=== PATIENT | male | born 1965 | race Two or more races ===

== ENCOUNTER 2022-01-19 10:01 | Emergency (ER) | payer MEDICAID, OTHER ==
[~2022-01-19] VITALS: Ht 188 cm; Wt 83.5 kg
[~2022-01-19 10:01] MED LIST: CEPH500C PO; IBUP200T76 PO; METH4TAB7 PO
[2022-01-19 10:09] VITALS: BP 158/85
[2022-01-19] MEDS ORDERED: IBUP800T27 PO (13:14)
== END 2022-01-19 13:55 | disposition home or self-care (01) ==
LOC: ER 10:01
DX: M25.561 Pain in right knee (principal); F17.210 Nicotine dependence, cigarettes, uncomplicated; F12.10 Cannabis abuse, uncomplicated
CPT/HCPCS: 73562

== ENCOUNTER 2025-02-13 08:22 | Day surgery (SDC) | payer OTHER ==
[~2025-02-13] VITALS: Ht 188 cm; Wt 74.8 kg
[~2025-02-13 08:22] MED LIST changes: +ACE650RS PR; -CEPH500C PO; -IBUP200T76 PO; -METH4TAB7 PO; +OME20GT OR; +TAMS-35 PO
[2025-02-13] MEDS ORDERED: LIDOCAINE VISCOUS 2% 15ML UD ONE (09:29)
--- NOTE | 2025-02-13 09:41 | DVHHP2 ---
GI H&P Pre-Op Assessment Date: 02/13/25 Chief complaint: Heartburn HPI: per clinic note Past medical history: per clinic note Past surgical history: per clinic note Family history: per clinic note Physical exam: General: NAD, AAOX3 HEENT: PERRL, no scleral icterus, normal hearing, gums without lesions or bleeding, oropharynx clear without erythema or exudate. Neck: Supple without enlargement of the thyroid, or lymphadenopathy. Chest: Normal size and shape, no tenderness, lung liriano clear to auscultation and percussion, nonlabored breathing. Heart: RRR, no murmur Abdomen: non-distended, no tenderness to palpation, +BS, no hepatosplenomegaly Extremities: no edema Neurological: CN II-XII intact, sensation intact in all extremities, 5+ strength in all extremities Skin: No rashes, No jaundice Assessment: -heartburn Plan: - EGD - Risks (bleeding, infection, perforation, reaction to sedation medications and cardiopulmonary arrest) and benefit of the procedure were explained to patient. Patient agrees to undergo the procedure. SHERRY MADRID MD Feb 13, 2025 09:41
[2025-02-13] MEDS ORDERED: fentaNYL CITRATE 100 MCG/2 ML VL ONE (09:50)
[2025-02-13] MEDS ORDERED: MIDAZOLAM HCL 2MG/2ML 2ml VIAL (1mg/ml) ONE (09:50)
--- NOTE | 2025-02-13 09:55 | DVHOP2 ---
Operative Report DATE OF OPERATION: 02/13/25 PROCEDURE: Upper Endoscopy. PREOPERATIVE INDICATION: The patient is a 59 -year-old male undergoing endoscopy for heartburn. POSTOPERATIVE DIAGNOSES: 1. Antral gastritis PROCEDURE PERFORMED BY: Rico Carrillo SCOPE: Olympus videoendoscope. ASA CLASS: 3 PREOPERATIVE MEDICATIONS: MAC with Dr Lares PROCEDURE IN DETAIL: After obtaining an informed consent, the patient was placed on left lateral decubitus position. The patient was then sedated with the above medications. A bite block was placed between his teeth. The endoscope was then passed through the oropharynx, into the esophagus, and through the stomach and pylorus up to the second and third part of the duodenum. The duodenum was normal in appearance. There was antral gastritis. Antral biopsies were obtained. The GE junction was normal appearance at 41 cm. The esophagus was normal in appearance. The endoscope was then withdrawn. The patient tolerated the procedure well without difficulty. COMPLICATIONS : None SPECIMENS: Antral biopsies DISPOSITION: D/C to home PLAN: 1. Await for biopsy result 2. Continue omeprazole. RICO CARRILLO MD Feb 13, 2025 09:55
--- NOTE | 2025-02-13 09:56 | DVHDS2 ---
Physician Discharge Progress N Final Diagnosis: Antral gastritis Operations or Procedures: Operations or Procedures EGD with cold biopsy Condition on Discharge: Good Disposition: Home Discharge Instructions: Diet: Regular Activity: No Restrictions, As Tolerated Medications: Resume previous home medications Follow Up Care: Discharge Statement: "Patient was advised to return to the ER or call 911 if any headaches, dizziness, shortness of breath, chest pain, abdominal pain, bleeding, fevers, or worsening of medical condition. Patient was counseled about treatment plan, medications, possible side effects, patientverbalized understanding. All questions were answered to the best of my ability. This discharge took greater then 30 minutes in planning, reviewing documentation, counseling the patient, and discussing with other team members." SHERRY MADRID MD Feb 13, 2025 09:56
[2025-02-13] MEDS ORDERED: PROPOFOL 10 MG/ML 20 ML IV ONE (09:57)
[2025-02-13] MEDS ORDERED: DexAMETHasone SOD PHOS 10MG/1ML VIAL INJ ONE (09:57)
[2025-02-13 10:00] VITALS: PULSE 82; RESP 19; TEMP 97.9; O2SAT 100
[2025-02-13 10:35] VITALS: BP 148/76; PULSE 60; RESP 14; O2SAT 96
== END 2025-02-13 10:45 | disposition home or self-care (01) ==
LOC: GI 08:22
PROVIDERS: ATTEND Internal Medicine Gastroenterology
DX: R12 Heartburn (principal); K29.50 Unspecified chronic gastritis without bleeding; K31.A0 Gastric intestinal metaplasia, unspecified; N40.0 Benign prostatic hyperplasia without lower urinary tract symptoms; K21.9 Gastro-esophageal reflux disease without esophagitis; Z87.891 Personal history of nicotine dependence
CPT/HCPCS: 43239; 88305; 88312; 88342; J1100; J2250; J2704; J3010; J7030